=== PATIENT | male | born 1990 | race Two or more races ===

== ENCOUNTER 2023-05-24 14:06 | Emergency (ER) | payer OTHER ==
[~2023-05-24] VITALS: Ht 167.6 cm; Wt 95.3 kg
[2023-05-24 16:09] LABS: HEMATOCRIT 47.4 % (39.0-48.0); HEMOGLOBIN 16.5 g/dL (13-16.00); MEAN CELL VOLUME 86.2 fL (80.0-100.00); MEAN CORPUSCULAR HEMOGLOBIN 29.9 pg (27.00-32.0); MEAN CORPUSCULAR HGB CONC 34.7 g/dl (32.0-36.0); PLATELET COUNT 261 K/uL (150-450); RED CELL DISTRIBUTION WIDTH 13.8 % (11.5-14.5)
[2023-05-24 16:26] LABS: CALCIUM 9.6 mg/dL (8.5-10.1); CREATININE SERUM 1.03 mg/dL (0.70-1.30); GFR 84.23; POTASSIUM 4.22 mEq/L (3.5-5.1)
== END 2023-05-24 18:53 | disposition home or self-care (01) ==
LOC: ER 14:07
PROVIDERS: General Practice
DX: G51.0 Bell's palsy (principal); R07.89 Other chest pain